=== PATIENT | male | born 1970 | race Caucasian/White ===

== ENCOUNTER 2016-08-25 08:22 | Emergency (ER) | payer BC ==
[2016-08-25] MEDS ORDERED: KETOROLAC 60 MG/2 ML VIAL IM STA (08:53)
[2016-08-25] MEDS ORDERED: DIAZEPAM 5 MG TAB PO STA (08:53)
--- NOTE | 2016-08-25 08:55 | ED ---
General Adult HPI - General Chief complaint: Back Pain/Injury Stated complaint: Lower Back Pain Time Seen by Provider: 08/25/16 08:42 Source: patient, RN notes reviewed Mode of arrival: ambulatory Limitations: no limitations - History of Present Illness Initial comments: Patient 45-year-old male with no significant past medical history, who presents emergency room today with chief complaint of increased lower back pain. He doesn't that he was at work yesterday and the pain came on slowly started to feel some discomfort to the right side of his lower back that was worse with any movements. 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 He states he went to see medical department. States he tried some ice. Was given Tylenol. Went back to work. States is his continue to work pain was increasing. States worse with any movements today. Had a difficult time getting out of bed. Does admit that pain does radiate at times down onto the right leg. Denies any bowel or bladder incontinence or retention. Denies any saddle anesthesia. Patient states is not taking anything this morning for the pain. He does admit that he is able to find comfortable position sitting or laying down at times. It is worse with movements of bending, turning, twisting. Patient denies any recent fever, chills, shortness of breath, chest pain, abdominal pain, nausea or vomiting, numbness or tingling, dysuria or hematuria, constipation or diarrhea, headaches or visual changes, or any other complaints. - Related Data Home Medications Medication Instructions Recorded Confirmed Acetaminophen [Tylenol] 500 mg PO Q4-6H PRN 08/25/16 08/25/16 Ibuprofen [Motrin] 800 mg PO DAILY PRN 08/25/16 08/25/16 Previous Rx's Medication Instructions Recorded Cyclobenzaprine [Flexeril] 10 mg PO TID #20 tab 08/25/16 Ibuprofen [Motrin] 800 mg PO Q6HR PRN #30 tab 08/25/16 Allergies Allergy/AdvReac Type Severity Reaction Status Date / Time No Known Allergies Allergy Verified 08/25/16 09:25 Review of Systems ROS Statement: Those systems with pertinent positive or pertinent negative responses have been documented in the HPI. ROS Other: All systems not noted in ROS Statement are negative. Past Medical History Additional Past Medical History / Comment(s): disc herniation History of Any Multi-Drug Resistant Organisms: None Reported Past Surgical History: No Surgical Hx Reported Past Psychological History: No Psychological Hx Reported Smoking Status: Never smoker Past Alcohol Use History: Occasional Past Drug Use History: None Reported General Exam - General Exam Comments Initial Comments: General: The patient is awake and alert, in no distress, and does not appear acutely ill. Eye: Pupils are equal, round and reactive to light, extra-ocular movements are intact. No nystagmus. There is normal conjunctiva bilaterally. No signs of icterus. Ears, nose, mouth and throat: There are moist mucous membranes and no oral lesions. Neck: The neck is supple, there is no tenderness or JVD. Cardiovascular: There is a regular rate and rhythm. No murmur, rub or gallop is appreciated. Respiratory: Lungs are clear to auscultation, respirations are non-labored, breath sounds are equal. No wheezes, stridor, rales, or rhonchi. Musculoskeletal: Normal appearance of thoracic, spine. No step-offs forms appreciated. Patient does have tenderness paravertebrally at L2-L3 of the lumbar spine. No tenderness in midline. Strength 5/5. Sensation intact. Pulses equal bilaterally 2+. Neurological: A&O x 3. CN II-XII intact, There are no obvious motor or sensory deficits. Coordination appears grossly intact. Speech is normal. Skin: Skin is warm and dry and no rashes or lesions are noted. Psychiatric: Cooperative, appropriate mood & affect, normal judgment. Limitations: no limitations Course Vital Signs 08/25/16 08:23 Temperature 97.4 F L Pulse Rate 65 Respiratory 18 Rate Blood Pressure 159/91 O2 Sat by Pulse 97 Oximetry Medical Decision Making - Medical Decision Making Patient reexamined at this time shows no signs of distress. Patient resting comfortably in the stretcher. Does admit to some improvement after Toradol and Valium here in the emergency room. Patient's x-ray reviewed and are unremarkable. Sinuses symptoms of concern and to return to the emergency room were discussed with the patient at length. Patient advised to follow-up family doctor over the next 2 days symptoms are unimproved. Advised that muscle relaxers make him drowsy and not to work or drive. Patient states her stated and is in agreement with this plan. Disposition Clinical Impression: Acute low back pain Disposition: HOME SELF-CARE Condition: Good Instructions: Acute Low Back Pain (ED) Additional Instructions: Please use medication as discussed. Please follow-up with family doctor in the next 2 days of symptoms have not improved. Please return to emergency room if the symptoms increase or worsen or for any other concerns. Prescriptions: Cyclobenzaprine [Flexeril] 10 mg PO TID #20 tab Ibuprofen [Motrin] 800 mg PO Q6HR PRN #30 tab PRN Reason: Pain Referrals: Blaine Alcala MD [Primary Care Provider] - 1-2 days Time of Disposition: 10:07
--- NOTE | 2016-08-25 09:46 | XR ---
EXAMINATION TYPE: XR lumbar spine 2 or 3V DATE OF EXAM: 08/25/2016 9:37 AM CLINICAL HISTORY: pain TECHNIQUE: Three views of the lumbar spine are submitted. COMPARISON: None. FINDINGS: There are 5 lumbar type vertebral bodies identified. The lumbar spine shows satisfactory alignment w ithout evidence of acute fracture or dislocation. Vertebral body heights are within normal limits. Disc spaces are within normal limits. The overlying soft tissue appears unremarkable. IMPRESSION: No acute fracture or dislocation is seen in the lumbar spine. ICD 10 NO FRACTURE, INITIAL EVALUATION
[2016-08-25 10:37] VITALS: BP 131/74; PULSE 74; RESP 16; TEMP 97.2
== END 2016-08-25 10:37 | disposition home or self-care (01) ==
LOC: EC 08:22
DX: M54.5 Low back pain (principal); Y92.69 Other specified industrial and construction area as the place of occurrence of the external cause; Y99.0 Civilian activity done for income or pay
CPT/HCPCS: 72100; 99283; 96372; J1885

== ENCOUNTER 2020-01-12 08:33 | Inpatient (IN) | payer BC ==
[2020-01-12] MEDS ORDERED: SODIUM CHLORIDE 0.9% 500 ML 500 ML IV STA (08:34)
[2020-01-12] MEDS ORDERED: ACETAMINOPHEN TAB 500 MG TAB PO STA (08:41)
[2020-01-12] MEDS ORDERED: IBUPROFEN 600 MG TAB PO STA (08:41)
[2020-01-12] MEDS: HYDROmorphone 0.5 MG/0.5 ML SYRINGE IVP STA ×2 (08:46→15:50)
--- NOTE | 2020-01-12 09:07 | ED ---
General Adult HPI - General Chief complaint: Abdominal Pain Stated complaint: abd pain Time Seen by Provider: 01/12/20 08:35 Source: patient, EMS, RN notes reviewed, old records reviewed Mode of arrival: EMS Limitations: no limitations - History of Present Illness Initial comments: This is a 49-year-old male who presents to the emergency department complaining of right lower quadrant abdominal pain for the last 3 days. Patient states the pain is getting progressively worse. Patient states he is mildly nauseated but has not vomited or any diarrhea. Patient denies any fever chills. Patient denies any chest pain difficulty breathing shortness of breath. Patient denies any dysuria hematuria urinary frequency. Patient denies any back pain. - Related Data Home Medications Medication Instructions Recorded Confirmed Atorvastatin [Lipitor] 10 mg PO DAILY 01/12/20 01/12/20 DULoxetine HCL [Cymbalta] 30 mg PO DAILY 01/12/20 01/12/20 Ibuprofen [Motrin] 800 mg PO BID PRN 01/12/20 01/12/20 Phentermine HCl [Adipex-P] 37.5 mg PO DAILY 01/12/20 01/12/20 Zolpidem [Ambien] 10 mg PO HS PRN 01/12/20 01/12/20 Allergies Allergy/AdvReac Type Severity Reaction Status Date / Time No Known Allergies Allergy Verified 01/12/20 09:28 Review of Systems ROS Statement: Those systems with pertinent positive or pertinent negative responses have been documented in the HPI. ROS Other: All systems not noted in ROS Statement are negative. Past Medical History Past Medical History: Hyperlipidemia Additional Past Medical History / Comment(s): disc herniation History of Any Multi-Drug Resistant Organisms: None Reported Past Surgical History: No Surgical Hx Reported Past Psychological History: No Psychological Hx Reported Smoking Status: Former smoker Past Alcohol Use History: Occasional Past Drug Use History: None Reported General Exam - General Exam Comments Initial Comments: GENERAL: Patient is well-developed and well-nourished. Patient is nontoxic and well- hydrated and is in moderate distress. ENT: Neck is soft and supple. No significant lymphadenopathy is noted. Oropharynx is clear. Moist mucous membranes. Neck has full range of motion without eliciting any pain. EYES: The sclera were anicteric and conjunctiva were pink and moist. Extraocular movements were intact and pupils were equal round and reactive to light. Eyelids were unremarkable. PULMONARY: Unlabored respirations. Good breath sounds bilaterally. No audible rales rhonchi or wheezing was noted. CARDIOVASCULAR: There is a regular rate and rhythm without any murmurs gallops or rubs. ABDOMEN: Right lower quadrant abdominal pain with rebound. Patient has no inguinal hernia noted SKIN: Normal skin inspection NEUROLOGIC: Patient is alert and oriented 3. Cranial nerves II through XII are grossly intact. Motor and sensory are also intact. Normal speech, volume and content. Symmetrical smile. MUSCULOSKELETAL: Normal extremities with adequate strength and full range of motion. LYMPHATICS: No significant lymphadenopathy is noted PSYCHIATRIC: Normal psychiatric evaluation. Limitations: no limitations Course Vital Signs 01/12/20 08:37 Temperature 102.8 F H Pulse Rate 106 H Respiratory 18 Rate Blood Pressure 126/76 O2 Sat by Pulse 97 Oximetry Medical Decision Making - Medical Decision Making CT of the abdomen shows acute appendicitis. I spoke with Dr. Farr he agreed to admit the patient and I wrote admit orders. Patient started on Zosyn in the emergency department. - Lab Data Result diagrams: 01/12/20 09:30 01/12/20 09:30 Lab Results 01/12/20 01/12/20 Range/Units 09:30 09:30 WBC 14.3 H (3.8-10.6) k/uL RBC 4.76 (4.30-5.90) m/uL Hgb 13.9 (13.0-17.5) gm/dL Hct 41.3 (39.0-53.0) % MCV 86.7 (80.0-100.0) fL MCH 29.1 (25.0-35.0) pg MCHC 33.6 (31.0-37.0) g/dL RDW 12.9 (11.5-15.5) % Plt Count 268 (150-450) k/uL Neutrophils % 87 % Lymphocytes % 6 % Monocytes % 5 % Eosinophils % 1 % Basophils % 0 % Neutrophils # 12.4 H (1.3-7.7) k/uL Lymphocytes # 0.9 L (1.0-4.8) k/uL Monocytes # 0.8 (0-1.0) k/uL Eosinophils # 0.2 (0-0.7) k/uL Basophils # 0.0 (0-0.2) k/uL Sodium 136 L (137-145) mmol/L Potassium 3.9 (3.5-5.1) mmol/L Chloride 106 (98-107) mmol/L Carbon Dioxide 22 (22-30) mmol/L Anion Gap 8 mmol/L BUN 15 (9-20) mg/dL Creatinine 1.20 (0.66-1.25) mg/dL Est GFR (CKD-EPI)AfAm 83 (>60 ml/min/1.73 sqM) Est GFR (CKD-EPI)NonAf 72 (>60 ml/min/1.73 sqM) Glucose 110 H (74-99) mg/dL Calcium 9.0 (8.4-10.2) mg/dL Total Bilirubin 0.8 (0.2-1.3) mg/dL AST 21 (17-59) U/L ALT 22 (4-49) U/L Alkaline Phosphatase 66 (38-126) U/L Total Protein 6.5 (6.3-8.2) g/dL Albumin 4.0 (3.5-5.0) g/dL Amylase 43 (30-110) U/L Lipase 46 (23-300) U/L Disposition Clinical Impression: Appendicitis Disposition: ADMITTED IP TO THIS HOSP Referrals: Blaine Alcala MD [Primary Care Provider] - 1-2 days Time of Disposition: 10:06
[2020-01-12 09:46] LABS: Basophils % (A) 0 %; Eosinophils # (A) 0.2 k/uL (0-0.7); Eosinophils % (A) 1 %; HCT 41.3 % (39.0-53.0); HGB 13.9 gm/dL (13.0-17.5); Lymphocytes # (A) 0.9 k/uL (1.0-4.8); Lymphocytes % (A) 6 %; MCH 29.1 pg (25.0-35.0); MCHC 33.6 g/dL (31.0-37.0); MCV 86.7 fL (80.0-100.0); Monocytes # (A) 0.8 k/uL (0-1.0); Monocytes % (A) 5 %; Neutrophils # (A) 12.4 k/uL (1.3-7.7); Neutrophils % (A) 87 %; Platelet Count 268 k/uL (150-450); RBC 4.76 m/uL (4.30-5.90); RDW 12.9 % (11.5-15.5); WBC 14.3 k/uL (3.8-10.6)
[2020-01-12 09:54] LABS: Potassium 3.9 mmol/L (3.5-5.1); Total Bilirubin 0.8 mg/dL (0.2-1.3); Total Protein 6.5 g/dL (6.3-8.2)
--- NOTE | 2020-01-12 09:57 | CT ---
EXAMINATION TYPE: CT abdomen pelvis w con DATE OF EXAM: 01/12/2020 COMPARISON: None. HISTORY: RLQ pain, nausea CT DLP: 2020.9 mGycm, Automated Exposure Control for Dose Reduction was Utilized. CONTRAST: CT scan of the abdomen and pelvis is performed without oral but with IV Contrast, patient injected wi th 100 mL of Isovue 300. FINDINGS: LUNG BASES: Dependent Atelectasis in both bases. LIVER/GB: No significant abnormality is appreciated. PANCREAS: No significant abnormality is seen. SPLEEN: No significant abnormality is seen. ADRENALS: No significant abnormality is seen. KIDNEYS: No significant abnormality is seen. BOWEL: Mild to moderate wall thickening involving the terminal ileum related to appendix findings. Th ere is hyperdense material suspected appendicolith towards the base of appendix. There is moderate di latation of 10 mm near the tip of appendix. There is moderate 2 severe ill-defined fluid and fat stra nding surrounding abnormal appendix. No free air. No well-formed fluid collection is seen. No suspici ous small large bowel dilatation. PROSTATE/SEMINAL VESICLES: Scattered bilateral pelvic phleboliths. Normal size prostate LYMPH NODES: No greater than 1cm abdominal or pelvic lymph nodes are appreciated. OSSEOUS STRUCTURES: No significant abnormality is seen. OTHER: No significant abnormality is seen. IMPRESSION: CT findings consistent with uncomplicated acute appendicitis as detailed above. Moderate to severe surrounding inflammatory change noted. Critical results communicated to ordering ER physician via telephone at time of dictation. A Document Only message has been documented for Scottie Cherry in the [employer] Critical Result system on 01/12/2020 9:54 AM, Message ID [id number].
[2020-01-12] MEDS ORDERED: PIPERACILLIN-TAZOBACTAM 3.375 GM in SODIUM CHLORIDE 0.9% 100 ML IVPB STA (10:05)
[2020-01-12] MEDS ORDERED: SODIUM CHLORIDE 0.9% 1,000 ML IV ONE (10:08)
[2020-01-12] MEDS ORDERED: HYDROmorphone 0.5 MG/0.5 ML SYRINGE IVP STA (10:15)
[2020-01-12 10:56] LABS: Appearance,Urine Clear (Clear); Bilirubin,Urine Negative (Negative); Blood,Urine Negative (Negative); Color,Urine Yellow; Glucose,Urine (UA) Negative (Negative); Ketones,Urine 2+ (Negative); Leukocyte Esterase,Urine Negative (Negative); Nitrite,Urine Negative (Negative); Protein,Urine Trace (Negative); Urobilinogen,Urine <2.0 mg/dL (<2.0)
[2020-01-12 11:46] LABS: Specific Gravity,Urine 1.047 (1.001-1.035)
--- NOTE | 2020-01-12 12:37 | P.GSHP ---
History of Present Illness H&P Date: 01/12/20 CHIEF COMPLAINT: Right lower quadrant abdominal pain HISTORY OF PRESENT ILLNESS: This is a 49-year-old male with a known history of hyperlipidemia. He presents to the emergency room with right lower quadrant abdominal pain for 3 days. Reports the pain is getting progressively worse. He has some nausea but no vomiting. Denies any fever or chills. Computed tomography scan findings did show evidence of an acute appendicitis. PAST MEDICAL HISTORY: See list. PAST SURGICAL HISTORY: See list. MEDICATIONS: See list. ALLERGIES: See list. SOCIAL HISTORY: No illicit drug use. REVIEW OF SYSTEMS: CONSTITUTIONAL: Denies fever or chills. HEENT: Denies blurred vision, vision changes, or eye pain. Denies hemoptysis CARDIOVASCULAR: Denies chest pain or pressure. RESPIRATORY: No shortness of breath. GASTROINTESTINAL: See HPI for pertinent findings HEMATOLOGIC: Denies bleeding disorders. GENITOURINARY: Denies any blood in urine or increased urinary frequency. SKIN: Denies pruitis. Denies rash. PHYSICAL EXAM: VITAL SIGNS: Reviewed GENERAL: Well-developed in no acute distress. HEENT: No sclera icterus. Extraocular movements grossly intact. Moist buccal mucosa. Head is atraumatic, normocephalic. No nasal drainage. ABDOMEN: Soft. Nondistended. Tenderness with palpation to right lower quadrant. NEUROLOGIC: Alert and oriented. Cranial nerves II through XII grossly intact. LABORATORY DATA: WBC 14.3 hemoglobin 13.9 IMAGING: CT abdomen and pelvis finding since his stent with uncomplicated acute appendicitis. Moderate to severe surrounding inflammatory change ASSESSMENT: 1. Acute appendicitis PLAN: -Patient is scheduled for laparoscopic appendectomy today with Dr. Farr Physician Supervisor [employer] [facility] note has been reviewed by physician. Signing provider agrees with the documented findings, assessment, and plan of care. Past Medical History Past Medical History: Hyperlipidemia Additional Past Medical History / Comment(s): disc herniation History of Any Multi-Drug Resistant Organisms: None Reported Past Surgical History: No Surgical Hx Reported Past Psychological History: No Psychological Hx Reported Smoking Status: Former smoker Past Alcohol Use History: Occasional Past Drug Use History: None Reported Medications and Allergies Home Medications Medication Instructions Recorded Confirmed Type Atorvastatin [Lipitor] 10 mg PO DAILY 01/12/20 01/12/20 History DULoxetine HCL [Cymbalta] 30 mg PO DAILY 01/12/20 01/12/20 History Ibuprofen [Motrin] 800 mg PO BID PRN 01/12/20 01/12/20 History Phentermine HCl [Adipex-P] 37.5 mg PO DAILY 01/12/20 01/12/20 History Zolpidem [Ambien] 10 mg PO HS PRN 01/12/20 01/12/20 History Allergies Allergy/AdvReac Type Severity Reaction Status Date / Time No Known Allergies Allergy Verified 01/12/20 09:28 Surgical - Exam Vital Signs Temp Pulse Resp BP Pulse Ox 102.8 F H 106 H 18 126/76 97 01/12/20 08:37 01/12/20 08:37 01/12/20 08:37 01/12/20 08:37 01/12/20 08:37 Results - Labs 01/12/20 09:30 01/12/20 09:30 Abnormal Lab Results - Last 24 Hours (Table) 01/12/20 01/12/20 01/12/20 Range/Units 09:30 09:30 09:30 WBC 14.3 H (3.8-10.6) k/uL Neutrophils # 12.4 H (1.3-7.7) k/uL Lymphocytes # 0.9 L (1.0-4.8) k/uL Sodium 136 L (137-145) mmol/L Glucose 110 H (74-99) mg/dL Ur Specific Gervais 1.047 H (1.001-1.035) Urine Protein Trace H (Negative) Urine Ketones 2+ H (Negative) Diabetes panel 01/12/20 Range/Units 09:30 Sodium 136 L (137-145) mmol/L Potassium 3.9 (3.5-5.1) mmol/L Chloride 106 (98-107) mmol/L Carbon Dioxide 22 (22-30) mmol/L BUN 15 (9-20) mg/dL Creatinine 1.20 (0.66-1.25) mg/dL Glucose 110 H (74-99) mg/dL Calcium 9.0 (8.4-10.2) mg/dL AST 21 (17-59) U/L ALT 22 (4-49) U/L Alkaline Phosphatase 66 (38-126) U/L Total Protein 6.5 (6.3-8.2) g/dL Albumin 4.0 (3.5-5.0) g/dL Calcium panel 01/12/20 Range/Units 09:30 Calcium 9.0 (8.4-10.2) mg/dL Albumin 4.0 (3.5-5.0) g/dL Pituitary panel 01/12/20 Range/Units 09:30 Sodium 136 L (137-145) mmol/L Potassium 3.9 (3.5-5.1) mmol/L Chloride 106 (98-107) mmol/L Carbon Dioxide 22 (22-30) mmol/L BUN 15 (9-20) mg/dL Creatinine 1.20 (0.66-1.25) mg/dL Glucose 110 H (74-99) mg/dL Calcium 9.0 (8.4-10.2) mg/dL Adrenal panel 01/12/20 Range/Units 09:30 Sodium 136 L (137-145) mmol/L Potassium 3.9 (3.5-5.1) mmol/L Chloride 106 (98-107) mmol/L Carbon Dioxide 22 (22-30) mmol/L BUN 15 (9-20) mg/dL Creatinine 1.20 (0.66-1.25) mg/dL Glucose 110 H (74-99) mg/dL Calcium 9.0 (8.4-10.2) mg/dL Total Bilirubin 0.8 (0.2-1.3) mg/dL AST 21 (17-59) U/L ALT 22 (4-49) U/L Alkaline Phosphatase 66 (38-126) U/L Total Protein 6.5 (6.3-8.2) g/dL Albumin 4.0 (3.5-5.0) g/dL
[2020-01-12] MEDS ORDERED: IV FLUID CONTINUATION 1,000 ML IV ONE (12:59)
[2020-01-12] MEDS ORDERED: ONDANSETRON 4 MG/2 ML VIAL ONE ×2 (13:13→13:49)
[2020-01-12] MEDS ORDERED: HEPARIN SODIUM,PORCINE 5,000 UNIT/ML 1 ML VIAL ONE (13:13)
[2020-01-12] MEDS ORDERED: HEPARIN SODIUM,PORCINE 5,000 UNIT/ML 1 ML VIAL SQ ONE (13:40)
[2020-01-12] MEDS ORDERED: MIDAZOLAM 2 MG/2 ML VIAL ONE (13:49)
[2020-01-12] MEDS ORDERED: ROCURONIUM 10 MG/ML (10 ML VIAL) IV ONE (13:49)
[2020-01-12] MEDS ORDERED: PHENYLEPHRINE-0.9% NACL SYG 1 MG/10 ML SYRINGE ONE (13:49)
[2020-01-12] MEDS ORDERED: fentaNYL (PF) 50 MCG/ML 2 ML AMP ONE (13:49)
[2020-01-12] MEDS ORDERED: NEOSTIGMINE 1 MG/ML 10 ML VIAL ONE (13:49)
[2020-01-12] MEDS ORDERED: SUCCINYLCHOLINE CHLORIDE VIAL 200 MG/10 ML VIAL IV ONE (13:49)
[2020-01-12] MEDS ORDERED: PROPOFOL 10 MG/ML 20 ML VIAL IV ONE (13:49)
[2020-01-12] MEDS ORDERED: GLYCOPYRROLATE 0.2 MG/ML 2 ML VIAL ONE (13:49)
[2020-01-12] MEDS ORDERED: LIDOCAINE 1% INJ 10MG/ML (20 ML MDV) ONE (13:49)
[2020-01-12] MEDS ORDERED: LACTATED RINGERS 1,000 ML IV ONE (14:27)
[2020-01-12] MEDS ORDERED: LIDOCAINE 1%-EPI 1:100,000 20 ML VIAL SQ ONE (14:31)
[2020-01-12] MEDS ORDERED: ACETAMINOPHEN TAB 325 MG TAB PO PRN (14:41)
[2020-01-12] MEDS ORDERED: NALOXONE 0.4 MG/ML 1 ML VIAL IV PRN (14:41)
--- NOTE | 2020-01-12 14:41 | P.OP ---
Date of Procedure: 01/12/20 Preoperative Diagnosis: Acute appendicitis Postoperative Diagnosis: Acute appendicitis with perforation Procedure(s) Performed: Open appendectomy Anesthesia: LEANNA Surgeon: Dima Farr Estimated Blood Loss (ml): 10 Pathology: other (Appendix) Condition: stable Disposition: PACU Description of Procedure: LThe patient's placed on the operating table in the supine position. The patient received general anesthesia. The abdomen was prepped and draped in the usual sterile fashion. The skin was anesthetized 1% local Xylocaine at the trocar sites. Using an 11 blade the skin was incised at the umbilicus. The umbilicus was grasped with a White Stone clamp and then a Veress needle was placed into the peritoneal cavity. Position of the Veress needle was confirmed with positive drop test. After adequate insufflation a 5 mm trocar was placed into the peritoneal cavity. The abdomen was further insufflated. And then the laparoscope was placed in the peritoneal cavity. Next a 5 mm trocar was placed in the midline suprapubic position. And then a 10 mm trocar was placed in the midline epigastric position. The patient was rotated with the right side up and in Trendelenburg. The appendix was visualized. The appendix was grossly perforated. There was evidence of purulent fluid throughout the peritoneal cavity. This point the procedure was converted to an open procedure. The trochars withdrawn. The skin was incised in the midline periumbilical area. And then using cautery the subcutaneous tissues were divided the fascia was divided midline. The wound WITH wound. The cecum was immobilized and brought towards the middle incision. The mesoappendix was divided with the Harmonic scissors. And then the appendix was ligated with a Endoloop. The Harmonic scissors were used to divide the appendix. The specimens of pathology. The abdomen was irrigated 3 L of normal saline. A AGNIESZKA drains placed through separate stab incision and brought out through the right abdominal wall. The fascia is closed loop #1 PDS suture. Skin was closed gilberto. Patient top she will was sent to recovery in stable condition.
[2020-01-12] MEDS: KETOROLAC 15 MG/ML 1 ML VIAL IVP SCH ×2 (15:50→23:21)
[2020-01-12] MEDS ORDERED: METOCLOPRAMIDE 5 MG/ML 2 ML VIAL IVP ONE (15:53)
[2020-01-12] MEDS: PIPERACILLIN-TAZOBACTAM 3.375 GM in SODIUM CHLORIDE 0.9% 100 ML IVPB SCH (18:02)
[2020-01-12] MEDS: D5-0.45% NACL WITH KCL 20MEQ/L 1,000 ML IV SCH (18:02)
[2020-01-12] MEDS: HYDROcodone/APAP 5-325MG 1 EACH TAB PO PRN (18:06)
--- NOTE | 2020-01-13 00:17 | P.CONS ---
History of Present Illness - Reason for Consult Consult date: 01/12/20 Perforated appendicitis Requesting physician: Dima Farr - Chief Complaint Abdominal pain x 2 days - History of Present Illness Patient is 49-year-old male presenting to the ER at [facility] with abdominal pain this started about 2 days prior to presentation to the hospital patient mentioned the pain and she started on the umbilical area an d subsequently moved to his right lower quadrant patient described the pain to be sharp in nature interest in normal sterile Bactrim by the time he presented to the hospital with associated nausea but no vomiting and no diarrhea he also started having a fever with chills on arrival to the ER the patient did have a fever of 102F patient was tachycardic and did have elevated white count of 14,[address] of abdominal pelvis with evidence of a complicated acute appendicitis with some extremity changes around it patient was taken to the OR he was noticed to have perforated appendicitis patient is status post appendectomy patient has been started on Zosyn and infectious disease was c onsulted for further management of antibiotic therapy Review of Systems Positive point has been mentioned in the HPI rest of the systems are negative Past Medical History Past Medical History: Hyperlipidemia Additional Past Medical History / Comment(s): disc herniation History of Any Multi-Drug Resistant Organisms: None Reported Past Surgical History: No Surgical Hx Reported Past Psychological History: No Psychological Hx Reported Smoking Status: Former smoker Past Alcohol Use History: Occasional Past Drug Use History: None Reported Medications and Allergies Home Medications Medication Instructions Recorded Confirmed Type Atorvastatin [Lipitor] 10 mg PO DAILY 01/12/20 01/12/20 History DULoxetine HCL [Cymbalta] 30 mg PO DAILY 01/12/20 01/12/20 History Ibuprofen [Motrin] 800 mg PO BID PRN 01/12/20 01/12/20 History Phentermine HCl [Adipex-P] 37.5 mg PO DAILY 01/12/20 01/12/20 History Zolpidem [Ambien] 10 mg PO HS PRN 01/12/20 01/12/20 History Allergies Allergy/AdvReac Type Severity Reaction Status Date / Time No Known Allergies Allergy Verified 01/12/20 09:28 Physical Exam Vitals: Vital Signs Temp Pulse Pulse Resp BP BP Pulse Ox 01/12/20 19:30 98.6 F 94 16 110/76 92 L 01/12/20 17:00 103 H 16 105/60 100 01/12/20 16:30 92 16 104/64 99 01/12/20 16:15 91 16 108/64 99 01/12/20 16:00 96 16 106/63 98 01/12/20 15:45 95 16 107/56 99 01/12/20 15:30 87 16 105/67 100 01/12/20 15:15 87 16 103/61 100 01/12/20 15:00 98.0 F 100 16 105/74 94 L 01/12/20 14:46 98.6 F 56 L 16 131/47 100 01/12/20 13:06 98.5 F 101 H 16 96/60 96 01/12/20 10:30 98.8 F 105 H 15 113/68 99 01/12/20 08:37 102.8 F H 106 H 18 126/76 97 Intake and Output 01/12/20 01/12/20 01/12/20 06:59 14:59 22:59 Intake Total 2300 1850 Output Total 10 Balance 2290 1850 Intake: IV 2300 1100 Oral 750 Output: Estimated Blood Loss 10 Other: Weight 117.934 kg 117.934 kg GENERAL DESCRIPTION: Middle-aged male lying in bed, no distress. No tachypnea or accessory muscle of respiration use. HEENT: Shows Pallor , no scleral icterus. Oral mucous membrane is dry. No pharyngeal erythema or thrush NECK: Trachea central, no thyromegaly. LUNGS: Unlabored breathing. Clear to auscultation anteriorly. No wheeze or crackle. HEART: S1, S2, regular rate and rhythm. No loud murmur ABDOMEN: Soft, right lower quadrant tenderness , guarding or rigidity, no organomegaly EXTREMITIES: No edema of feet. SKIN: No rash, no masses palpable. NEUROLOGICAL: The patient is awake, alert, oriented x3, mood and affect normal. Results CBC & Chem 7: 01/12/20 09:30 01/12/20 09:30 Labs: Abnormal Lab Results - Last 24 Hours (Table) 01/12/20 01/12/20 01/12/20 Range/Units 09:30 09:30 09:30 WBC 14.3 H (3.8-10.6) k/uL Neutrophils # 12.4 H (1.3-7.7) k/uL Lymphocytes # 0.9 L (1.0-4.8) k/uL Sodium 136 L (137-145) mmol/L Glucose 110 H (74-99) mg/dL Ur Specific [place] 1.047 H (1.001-1.035) Urine Protein Trace H (Negative) Urine Ketones 2+ H (Negative) Assessment and Plan Assessment: 1- patient presented to hospital with sepsis in this patient who did have a fever of 102F tachycardia and elevated white count source is acute or for early appendicitis and will need to cover for the enteric gram-negative both anaerobes and aerobes to be likely responsible for this sepsis and infection (1) Perforated appendicitis Current Visit: Yes Status: Acute Code(s): K35.32 - ACUTE APPENDICITIS WITH PERF AND LOC PERITONITIS, W/O ABSCS SNOMED Code(s): 87105742 (2) Sepsis Current Visit: Yes Status: Acute Code(s): A41.9 - SEPSIS, UNSPECIFIED ORGANISM SNOMED Code(s): 90955366 Plan: 1- Zosyn 3.375 mg every 8 hours 2-gentle IV fluid We will follow on clinical condition and cultures to further adjust medication if needed Thank you for this consultation will follow this patient with you Time with Patient: Greater than 30
[2020-01-13] MEDS: PIPERACILLIN-TAZOBACTAM 3.375 GM in SODIUM CHLORIDE 0.9% 100 ML IVPB SCH ×4 (01:01→23:44)
[2020-01-13] MEDS: D5-0.45% NACL WITH KCL 20MEQ/L 1,000 ML IV SCH ×3 (02:19→12:01)
[2020-01-13] MEDS: KETOROLAC 15 MG/ML 1 ML VIAL IVP SCH ×4 (05:35→23:44)
[2020-01-13 06:40] LABS: Basophils % (A) 0 %; Eosinophils # (A) 0.1 k/uL (0-0.7); Eosinophils % (A) 1 %; HCT 36.5 % (39.0-53.0); HGB 12.1 gm/dL (13.0-17.5); Lymphocytes # (A) 1.3 k/uL (1.0-4.8); Lymphocytes % (A) 11 %; MCH 29.4 pg (25.0-35.0); MCHC 33.2 g/dL (31.0-37.0); MCV 88.7 fL (80.0-100.0); Mean Platelet Volume 8.2; Monocytes # (A) 0.6 k/uL (0-1.0); Monocytes % (A) 5 %; Neutrophils # (A) 10.2 k/uL (1.3-7.7); Neutrophils % (A) 83 %; Platelet Count 225 k/uL (150-450); RBC 4.12 m/uL (4.30-5.90); RDW 13.1 % (11.5-15.5); WBC 12.4 k/uL (3.8-10.6)
[2020-01-13] MEDS: ENOXAPARIN 40 MG/0.4 ML SYRINGE SQ SCH (08:42)
[2020-01-13] MEDS: BENZOCAINE/MENTHOL LOZENG 1 EACH LOZENGE MUCOUS MEM PRN ×2 (08:59→16:48)
[2020-01-13] MEDS: HYDROcodone/APAP 5-325MG 1 EACH TAB PO PRN (08:59)
--- NOTE | 2020-01-13 09:33 | P.PN ---
Progress Note - Text Progress Note Date: 01/13/20 The patient is postoperative day 1 from open perforated appendectomy. Patient feels well. On exam vital signs are stable. His abdomen soft. Incision is clean dry tach. Status post open appendectomy for perforated appendicitis. Patient will continue C IV antibiotics. He'll remain on clear liquids.
[2020-01-13 11:02] LABS: Albumin 3.5 g/dL (3.80-4.90); Albumin/Globulin Ratio 2.06 (1.60-3.17); Anion Gap 7.3 mmol/L (4.00-12.00); BUN/Creat Ratio 13.33 Ratio (12.00-20.00); Calcium 8.1 mg/dL (8.7-10.3); Carbon Dioxide 26.7 mmol/L (21.6-31.8); Globulin 1.7 g/dL (1.6-3.3); Non-African American GFR(CKD) 71.6 (60.0-200.0); Potassium 3.9 mmol/L (3.5-5.5); Total Bilirubin 1.2 mg/dL (0.2-1.2); Total Protein 5.2 g/dL (6.2-8.2)
--- NOTE | 2020-01-13 16:50 | P.CONS ---
History of Present Illness - Reason for Consult Consult date: 01/13/20 Medical management Requesting physician: Dima Farr - Chief Complaint Abdominal pain - History of Present Illness Consultation: This is a pleasant 49-year-old patient of Dr. Alcala. Chronic stable medical conditions include insomnia, anxiety, hyperlipidemia. Patient is not taking Adipex-p. Patient had presented to the ER after was having increasing pain in the right lower quadrant coming on over course of 3 days. Progressively getting worse. Had some nausea. But no vomiting. No fever and chills. Computed tomography scan of the ER showed moderate to severe surrounding inflammatory changes of the appendix. Was taken to the operating room yesterday. Found to have perforated appendix with purulent fluid throughout the peritoneal cavity. Patient was converted to an open procedure. Has a drain in place. This morning the patient has some pain. on clear liquids. Review of systems: GEN.: Tired EYES: None HEENT: None NECK: None RESPIRATORY: None CARDIOVASCULAR: None GASTROINTESTINAL: As above GENITOURINARY: None MUSCULOSKELETAL: None LYMPHATICS: None HEMATOLOGICAL: None PSYCHIATRY: None NEUROLOGICAL: None Past medical history to include: Insomnia, anxiety, hyperlipidemia Social history: , does not smoke, alcohol occasionally. Works in a factory. Family history: Reviewed, noncontributory to presentation Physical examination: VITAL SIGNS: 102.8, 106, 18, 126/76, 97% on room air-upon presentation GENERAL: BMI 37.3, laying in bed, tired. EYES: Pupils equal. Conjunctiva normal. HEENT: External appearance of nose and ears normal, oral cavity grossly normal. NECK: JVD not raised; masses not palpable. HEART: First and second heart sounds are normal; no edema. LUNGS: Respiratory rate normal; clear to auscultation. ABDOMEN: Soft, tender, abdominal drain, dressing in place, liver spleen not palpable, no masses palpable. PSYCH: Alert and oriented x3; mood and affect normal. NEUROLOGICAL: Cranial nerves grossly intact; no facial asymmetry, power and sensation grossly intact. LYMPHATICS: No lymph nodes palpable in the axilla and neck INVESTIGATIONS, reviewed in the clinical context: White count 14.3. B12 0.4 increased neutrophils potassium 3.9 creatinine 1.2 Computed tomography scan of the abdomen-fluid and flat stranding around the normal appendix Assessment: -Acute appendicitis with perforation leading to open appendectomy, causing sepsis, POA -Secondary peritonitis from above -Obesity BMI 37.3 -Chronic insomnia idiopathic -Anxiety disorder not otherwise specified -Hyperlipidemia Plan: Patient is on IV Zosyn, Lovenox for DVT prophylaxis, IV fluids. On clear liquids. We'll resume patient's Cymbalta Lipitor. Care was discussed with the patient. Will add IV Flagyl Thank you Dr. Farr Past Medical History Past Medical History: Hyperlipidemia Additional Past Medical History / Comment(s): disc herniation History of Any Multi-Drug Resistant Organisms: None Reported Past Surgical History: No Surgical Hx Reported Past Psychological History: No Psychological Hx Reported Smoking Status: Former smoker Past Alcohol Use History: Occasional Past Drug Use History: None Reported Medications and Allergies Home Medications Medication Instructions Recorded Confirmed Type Atorvastatin [Lipitor] 10 mg PO DAILY 01/12/20 01/12/20 History DULoxetine HCL [Cymbalta] 30 mg PO DAILY 01/12/20 01/12/20 History Ibuprofen [Motrin] 800 mg PO BID PRN 01/12/20 01/12/20 History Phentermine HCl [Adipex-P] 37.5 mg PO DAILY 01/12/20 01/12/20 History Zolpidem [Ambien] 10 mg PO HS PRN 01/12/20 01/12/20 History Allergies Allergy/AdvReac Type Severity Reaction Status Date / Time No Known Allergies Allergy Verified 01/12/20 09:28 Physical Exam Vitals: Vital Signs Temp Pulse Pulse Resp BP BP Pulse Ox 01/13/20 07:00 99.4 F 104 H 16 108/73 91 L 01/13/20 01:15 98.5 F 83 16 95/60 93 L 01/12/20 19:30 98.6 F 94 16 110/76 92 L 01/12/20 17:00 103 H 16 105/60 100 01/12/20 16:30 92 16 104/64 99 01/12/20 16:15 91 16 108/64 99 01/12/20 16:00 96 16 106/63 98 01/12/20 15:45 95 16 107/56 99 01/12/20 15:30 87 16 105/67 100 01/12/20 15:15 87 16 103/61 100 01/12/20 15:00 98.0 F 100 16 105/74 94 L 01/12/20 14:46 98.6 F 56 L 16 131/47 100 01/12/20 13:06 98.5 F 101 H 16 96/60 96 01/12/20 10:30 98.8 F 105 H 15 113/68 99 Intake and Output 01/12/20 01/13/20 01/13/20 22:59 06:59 14:59 Intake Total 1850 100 750 Output Total 25 Balance 1850 100 725 Intake: IV 1100 Intake, IV Titration 350 Amount Piperacillin-Tazobactam 3 100 .375 gm In Sodium Chloride 0.9% 100 ml @ 25 mls/hr IVPB Q8HR BHAVIK Rx# :[id number] Sodium Chloride 0.9% 1, 250 000 ml @ 75 mls/hr IV . [id number] ONE Rx#:[id number] Oral 750 100 400 Output: Drainage 25 Right Abdomen 25 Other: Voiding Method Toilet # Voids 1 1 Weight 117.934 kg Results CBC & Chem 7: 01/13/20 06:12 01/13/20 06:12 Labs: Abnormal Lab Results - Last 24 Hours (Table) 01/12/20 01/13/20 Range/Units 09:30 06:12 WBC 12.4 H (3.8-10.6) k/uL RBC 4.12 L (4.30-5.90) m/uL Hgb 12.1 L (13.0-17.5) gm/dL Hct 36.5 L (39.0-53.0) % Neutrophils # 10.2 H (1.3-7.7) k/uL Ur Specific [place] 1.047 H (1.001-1.035) Urine Protein Trace H (Negative) Urine Ketones 2+ H (Negative)
[2020-01-13] MEDS ORDERED: metroNIDAZOLE-NS PMX 500 MG in SALINE 1 100ML.BAG IVPB SCH (17:00)
[2020-01-13] MEDS: metroNIDAZOLE-NS PMX 500 MG in SALINE 1 100ML.BAG IVPB SCH (21:58)
--- NOTE | 2020-01-13 23:19 | PN ---
PROGRESS NOTE DATE OF SERVICE: 01/13/2020 REASON FOR FOLLOWUP: Perforated appendicitis. INTERVAL HISTORY: Patient is currently afebrile. The patient is breathing comfortably. The patient's abdominal pain has slightly decreased in intensity. No chest pain, shortness of breath or cough. No nausea, vomiting and has been passing gas. PHYSICAL EXAMINATION: Blood pressure is a 111/68 with pulse 100, temperature 98.4. He is 95% on room air. General description: The patient is a middle-aged male lying in bed in no distress. Respiratory system: Unlabored breathing, clear to auscultation anteriorly. Heart S1, S2. Regular rate and rhythm. ABDOMEN: Soft, mildly tender. No guarding. No rigidity. LABS: Hemoglobin is 10.1, white count 12.4, creatinine 1.2. Blood culture has been negative. IMPRESSION/PLAN: Patient with perforated appendicitis, status post appendectomy. The patient is currently covered with Zosyn, to continue. We will monitor clinical course closely. Continue supportive care. MMODL / IJN: [id number] /
[2020-01-14] MEDS: D5-0.45% NACL WITH KCL 20MEQ/L 1,000 ML IV SCH ×3 (01:40→15:55)
[2020-01-14] MEDS: metroNIDAZOLE-NS PMX 500 MG in SALINE 1 100ML.BAG IVPB SCH ×4 (03:34→20:00)
[2020-01-14] MEDS: KETOROLAC 15 MG/ML 1 ML VIAL IVP SCH ×2 (05:34→11:36)
[2020-01-14 06:10] LABS: Basophils % (A) 0 %; Eosinophils # (A) 0.4 k/uL (0-0.7); Eosinophils % (A) 4 %; HCT 34.3 % (39.0-53.0); HGB 11.3 gm/dL (13.0-17.5); Lymphocytes # (A) 1.1 k/uL (1.0-4.8); Lymphocytes % (A) 11 %; MCHC 32.8 g/dL (31.0-37.0); MCV 88.4 fL (80.0-100.0); Mean Platelet Volume 9.1; Monocytes # (A) 0.4 k/uL (0-1.0); Monocytes % (A) 5 %; Neutrophils # (A) 7.3 k/uL (1.3-7.7); Neutrophils % (A) 79 %; Platelet Count 225 k/uL (150-450); RBC 3.88 m/uL (4.30-5.90); RDW 12.4 % (11.5-15.5); WBC 9.2 k/uL (3.8-10.6)
[2020-01-14] MEDS: ENOXAPARIN 40 MG/0.4 ML SYRINGE SQ SCH (08:57)
[2020-01-14] MEDS: PIPERACILLIN-TAZOBACTAM 3.375 GM in SODIUM CHLORIDE 0.9% 100 ML IVPB SCH ×2 (08:57→15:54)
--- NOTE | 2020-01-14 09:41 | P.PN ---
Progress Note - Text Progress Note Date: 01/14/20 The patient feels better. He has some incisional pain. On exam vital signs are stable. Abdomen soft. Incisions clean and intact. AGNIESZKA drain has serosanguineous drainage. Status post open appendectomy for perforated appendicitis. Patient received IV antibiotics. We discussed the discharged home and next 48 hours.
[2020-01-14 11:35] LABS: African American GFR (CKD) 103.4 (60.0-200.0); Albumin 3.3 g/dL (3.80-4.90); Albumin/Globulin Ratio 1.83 (1.60-3.17); Anion Gap 7.5 mmol/L (4.00-12.00); Calcium 8.1 mg/dL (8.7-10.3); Carbon Dioxide 25.5 mmol/L (21.6-31.8); Globulin 1.8 g/dL (1.6-3.3); Non-African American GFR(CKD) 89.2 (60.0-200.0); Potassium 3.8 mmol/L (3.5-5.5); Total Bilirubin 0.8 mg/dL (0.2-1.2); Total Protein 5.1 g/dL (6.2-8.2)
[2020-01-14] MEDS: HYDROcodone/APAP 5-325MG 1 EACH TAB PO PRN ×2 (12:41→20:00)
--- NOTE | 2020-01-14 16:15 | P.PN ---
Progress Note - Text Progress Note Date: 01/14/20 - Chief Complaint Abdominal pain - History of Present Illness History of presenting complaint: This is a pleasant 49-year-old patient of Dr. Alcala. Chronic stable medical conditions include insomnia, anxiety, hyperlipidemia. Patient is not taking Adipex-p. Patient had presented to the ER after was having increasing pain in the right lower quadrant coming on over course of 3 days. Progressively getting worse. Had some nausea. But no vomiting. No fever and chills. Computed tomography scan of the ER showed moderate to severe surrounding inflammatory changes of the appendix. Was taken to the operating room yesterday. Found to have perforated appendix with purulent fluid throughout the peritoneal cavity. Patient was converted to an open procedure. Has a drain in place. This morning the patient has some pain. on clear liquids. Admitted with acute appendicitis with perforation leading to open appendectomy- causing sepsis and secondary peritonitis. On IV Zosyn and IV Flagyl. Abdominal drain in place. Today-laying in bed. Some pain is present. On clear liquids. No nausea vomiting. Review of systems: Was done for constitutional, cardiovascular, GI, pulmonary. relevant finding as above Active Medications Acetaminophen (Acetaminophen Tab 325 Mg Tab) 650 mg PO Q6HR PRN PRN Reason: Mild Pain or Fever >= 100.5 Last Admin: 01/12/20 21:15 Dose: 650 mg Documented by: Hydrocodone Bitart/Acetaminophen (Hydrocodone/Apap 5-325mg 1 Each Tab) 2 each PO Q6HR PRN PRN Reason: Moderate to Severe Pain Last Admin: 01/14/20 12:41 Dose: 2 each Documented by: Benzocaine/Menthol (Benzocaine/Menthol Lozeng 1 Each Lozenge) 1 each MUCOUS MEM Q6HR PRN PRN Reason: Sore Throat Last Admin: 01/13/20 16:48 Dose: 1 each Documented by: Enoxaparin Sodium (Enoxaparin 40 Mg/0.4 Ml Syringe) 40 mg SQ DAILY [facility] Last Admin: 01/14/20 08:57 Dose: 40 mg Documented by: Potassium Chloride/Dextrose/Sod Cl (D5%-1/2ns-Kcl 20 Meq/L Iv Solution) 1,000 mls @ 125 mls/hr IV .Q8H BHAVIK Last Admin: 01/14/20 15:55 Dose: 125 mls/hr Documented by: Piperacillin Sod/Tazobactam (Sod 3.375 gm/ Sodium Chloride) 100 mls @ 25 mls/hr IVPB Q8HR [facility] Last Admin: 01/14/20 15:54 Dose: 25 mls/hr Documented by: Metronidazole 500 mg/ IV (Solution) 100 mls @ 100 mls/hr IVPB Q6H [facility] Last Admin: 01/14/20 15:24 Dose: 100 mls/hr Documented by: Naloxone HCl (Naloxone 0.4 Mg/Ml 1 Ml Vial) 0.2 mg IV Q2M PRN PRN Reason: Opioid Reversal Ondansetron HCl (Ondansetron 4 Mg/2 Ml Vial) 4 mg IVP Q6HR PRN PRN Reason: Nausea And Vomiting Physical examination: VITAL SIGNS: 97.7, 77, 19, 102/53, 94% room air GENERAL: laying in bed, tired. EYES: Pupils equal. Conjunctiva normal. HEENT: External appearance of nose and ears normal, oral cavity grossly normal. NECK: JVD not raised; masses not palpable. HEART: First and second heart sounds are normal; no edema. LUNGS: Respiratory rate normal; clear to auscultation. ABDOMEN: Soft, tender, abdominal drain, dressing in place, liver spleen not palpable, no masses palpable. PSYCH: Alert and oriented x3; mood and affect normal. INVESTIGATIONS, reviewed in the clinical context: White count 9.2 hemoglobin 11.3 potassium 3.8 Previous testing White count 14.3. Hemoglobin 13.9 potassium 3.9 creatinine 1.2 Computed tomography scan of the abdomen-fluid and flat stranding around the normal appendix Assessment: -Acute appendicitis with perforation leading to open appendectomy, causing sepsis, POA -Secondary peritonitis from above -Obesity BMI 37.3 -Chronic insomnia idiopathic -Anxiety disorder not otherwise specified -Hyperlipidemia Plan: Continue on IV Flagyl, IV Zosyn,, IV fluids. Remains On clear liquids. Encouraged to be out of bed and ambulate Thank you Dr. Farr
[2020-01-15] MEDS: D5-0.45% NACL WITH KCL 20MEQ/L 1,000 ML IV SCH ×2 (00:11→13:47)
[2020-01-15] MEDS: PIPERACILLIN-TAZOBACTAM 3.375 GM in SODIUM CHLORIDE 0.9% 100 ML IVPB SCH ×3 (00:12→15:40)
[2020-01-15] MEDS: HYDROcodone/APAP 5-325MG 1 EACH TAB PO PRN ×4 (02:49→20:50)
[2020-01-15] MEDS: metroNIDAZOLE-NS PMX 500 MG in SALINE 1 100ML.BAG IVPB SCH ×4 (02:49→20:43)
--- NOTE | 2020-01-15 06:18 | PN ---
PROGRESS NOTE DATE OF SERVICE: 01/14/2020 REASON FOR FOLLOWUP: Perforated appendicitis and gram-negative bacteremia in this patient with clinical course complicated by development of gram positive blood culture with gram-negative bacilli report this morning. The patient is currently afebrile. He is breathing comfortably. Denies having any chest pain. No shortness of breath or cough. Abdominal pain is currently controlled. No nausea, vomiting or diarrhea. PHYSICAL EXAMINATION: Blood pressure is 101/67 with a pulse of 91, temperature 98.9. He is 95% on room air. General description is a middle-aged male lying in bed in no distress. Respiratory system: Unlabored breathing, clear to auscultation anteriorly. Heart S1, S2. Regular rate and rhythm. Abdomen is soft, mildly tender, no guarding or rigidity. Extremities with no edema to the feet. LABS: Hemoglobin 11.2, white count 9.2, BUN of 12, creatinine 1.0. Blood culture with gram- negative bacilli. DIAGNOSTIC IMPRESSION AND PLAN: Patient with perforated appendicitis status post appendectomy, now with evidence of gram-negative bacteremia. The patient is covered with Zosyn. Blood cultures will be repeated. Discharge antibiotic depending upon the culture report. Continue supportive care. MMODL / IJN: [id number] /
[2020-01-15 06:21] LABS: Basophils % (A) 0 %; Eosinophils # (A) 0.4 k/uL (0-0.7); Eosinophils % (A) 6 %; HCT 33.2 % (39.0-53.0); HGB 10.8 gm/dL (13.0-17.5); Lymphocytes # (A) 0.8 k/uL (1.0-4.8); Lymphocytes % (A) 10 %; MCH 28.9 pg (25.0-35.0); MCHC 32.5 g/dL (31.0-37.0); Mean Platelet Volume 8.2; Monocytes # (A) 0.5 k/uL (0-1.0); Monocytes % (A) 6 %; Neutrophils # (A) 5.8 k/uL (1.3-7.7); Neutrophils % (A) 77 %; Platelet Count 241 k/uL (150-450); RBC 3.73 m/uL (4.30-5.90); RDW 12.4 % (11.5-15.5); WBC 7.6 k/uL (3.8-10.6)
[2020-01-15] MEDS: ENOXAPARIN 40 MG/0.4 ML SYRINGE SQ SCH (07:41)
[2020-01-15 10:58] LABS: African American GFR (CKD) 117.5 (60.0-200.0); Anion Gap 5.3 mmol/L (4.00-12.00); C Reactive Protein 18.9 mg/dL (0.0-0.8); Carbon Dioxide 23.7 mmol/L (21.6-31.8); Non-African American GFR(CKD) 101.4 (60.0-200.0); Potassium 3.8 mmol/L (3.5-5.5)
--- NOTE | 2020-01-15 11:17 | P.PN ---
Subjective Progress Note Date: 01/15/20 CHIEF COMPLAINT: Abdominal pain HISTORY OF PRESENT ILLNESS: Status post open appendectomy for perforated appendicitis. Patient did have some nausea this morning that is improving. He did have a bowel movement. He is tolerating low-fat diet. He reports that his pain is controlled. He is afebrile. White count 7.6 hemoglobin 10.8. Patient does have a blood culture with gram-negative bacilli. Followed by ID. Case discussed with infectious disease. Awaiting blood cultures finalize. PHYSICAL EXAM: VITAL SIGNS: Reviewed. GENERAL: Well-developed in no acute distress. HEENT: No sclera icterus. Extraocular movements grossly intact. Moist buccal mucosa. Head is atraumatic, normocephalic. ABDOMEN: Soft. Nondistended. Nontender. Dressing with some minimal drainage noted at the distal part of the dressing. Otherwise clean dry and intact NEUROLOGIC: Alert and oriented. Cranial nerves II through XII grossly intact. ASSESSMENT: 1. Perforated appendicitis status post open appendectomy 2. Gram-negative bacteremia PLAN: -Continue low-fat diet -Continue antibiotics per ID -Follow up on repeat blood culture -Continue pain medication as needed -Encourage patient to ambulate and use incentive spirometer Physician Machine [employer] note has been reviewed by physician. Signing provider agrees with the documented findings, assessment, and plan of care. Objective - Vital Signs Vital signs: Vital Signs Temp 98.5 F 01/15/20 07:00 Pulse 89 01/15/20 08:00 Resp 18 01/15/20 08:00 BP 133/86 01/15/20 07:00 Pulse Ox 94 L 01/15/20 07:00 Intake & Output 01/14/20 01/15/20 01/15/20 18:59 06:59 18:59 Intake Total 1255 Output Total 65 35 Balance 1190 -35 Intake: Intake, IV Titration 675 Amount D5-0.45% NaCl with KCl 475 20Meq/l 1,000 ml @ 125 mls/hr IV .Q8H BHAVIK Rx#: [id number] Piperacillin-Tazobactam 3 100 .375 gm In Sodium Chloride 0.9% 100 ml @ 25 mls/hr IVPB Q8HR [facility]AVIK Rx# :[id number] PMX 500 100 mg In Saline 1 100ml.bag @ 100 mls/hr IVPB Q6H [facility]AVIK Rx#:[id number] Oral 580 Output: Drainage 65 35 Right Abdomen 65 35 Other: Voiding Method Toilet Toilet Toilet Urinal Urinal Urinal # Voids 2 # Bowel Movements 1 - Labs CBC & Chem 7: 01/15/20 05:48 01/15/20 05:48 Labs: Abnormal Lab Results - Last 24 Hours (Table) 01/14/20 01/15/20 01/15/20 Range/Units 05:52 05:48 05:48 RBC 3.73 L (4.30-5.90) m/uL Hgb 10.8 L (13.0-17.5) gm/dL Hct 33.2 L (39.0-53.0) % Lymphocytes # 0.8 L (1.0-4.8) k/uL BUN/Creatinine Ratio 10.00 L (12.00-20.00) Ratio Calcium 8.1 L 8.0 L (8.7-10.3) mg/dL C-Reactive Protein 18.9 H (0.0-0.8) mg/dL Total Protein 5.1 L (6.2-8.2) g/dL Albumin 3.30 L (3.80-4.90) g/dL Microbiology - Last 24 Hours (Table) 01/12/20 03:04 Blood Culture Gram Stain - Preliminary Blood
--- NOTE | 2020-01-15 16:00 | PN ---
PROGRESS NOTE DATE OF SERVICE: 01/15/2020 REASON FOR FOLLOWUP: Perforated appendicitis and Gram-negative bacteremia. INTERVAL HISTORY: The patient is currently afebrile. The patient is breathing comfortably. The patient denies having any chest pain or shortness of breath or cough. Minimal abdominal pain. No worsening. He has been passing gas. PHYSICAL EXAMINATION: Blood pressure 133/86, pulse of 89, temperature 98.5. He is 94% on room air. General description is a middle-aged male lying in bed in no distress. RESPIRATORY SYSTEM: Unlabored breathing. Clear to auscultation anteriorly. HEART: S1, S2. Regular rate and rhythm. ABDOMEN: Soft. Mild tenderness. No guarding or rigidity. LABS: Hemoglobin is 10.9, white count 7.6. Creatinine 0.9. Blood culture with Gram-negative bacilli. ID and sensitivities pending. DIAGNOSTIC IMPRESSION AND PLAN: Patient with perforated appendicitis, status post appendectomy with Gram-negative bacteremia. ID and sensitivity of the Gram-negative and the blood are still pending. Follow-up blood culture has been done. The patient is covered with Zosyn. Will wait for the blood culture to finalize to determine discharge antibiotics. Continue with supportive care. MMODL / IJN: [id number] /
--- NOTE | 2020-01-15 16:57 | P.PN ---
Progress Note - Text Progress Note Date: 01/15/20 - Chief Complaint Abdominal pain History of presenting complaint: This is a pleasant 49-year-old patient of Dr. Alcala. Chronic stable medical conditions include insomnia, anxiety, hyperlipidemia. Patient is not taking Adipex-p. Patient had presented to the ER after was having increasing pain in the right lower quadrant coming on over course of 3 days. Progressively getting worse. Had some nausea. But no vomiting. No fever and chills. Computed tomography scan of the ER showed moderate to severe surrounding inflammatory changes of the appendix. Was taken to the operating room yesterday. Found to have perforated appendix with purulent fluid throughout the peritoneal cavity. Patient was converted to an open procedure. Has a drain in place. This morning the patient has some pain. on clear liquids. Admitted with acute appendicitis with perforation leading to open appendectomy- causing sepsis and secondary peritonitis. On IV Zosyn and IV Flagyl. Abdominal drain in place. Today-had a bowel movement yesterday. Pain control. Advance to regular diet. Has been out of bed. Ambulating. Review of systems: Was done for constitutional, cardiovascular, GI, pulmonary. relevant finding as above Active Medications Acetaminophen (Acetaminophen Tab 325 Mg Tab) 650 mg PO Q6HR PRN PRN Reason: Mild Pain or Fever >= 100.5 Last Admin: 01/12/20 21:15 Dose: 650 mg Documented by: Hydrocodone Bitart/Acetaminophen (Hydrocodone/Apap 5-325mg 1 Each Tab) 2 each PO Q6HR PRN PRN Reason: Moderate to Severe Pain Last Admin: 01/15/20 15:40 Dose: 2 each Documented by: Benzocaine/Menthol (Benzocaine/Menthol Lozeng 1 Each Lozenge) 1 each MUCOUS MEM Q6HR PRN PRN Reason: Sore Throat Last Admin: 01/13/20 16:48 Dose: 1 each Documented by: Enoxaparin Sodium (Enoxaparin 40 Mg/0.4 Ml Syringe) 40 mg SQ DAILY BHAVIK Last Admin: 01/15/20 07:41 Dose: 40 mg Documented by: Piperacillin Sod/Tazobactam (Sod 3.375 gm/ Sodium Chloride) 100 mls @ 25 mls/hr IVPB Q8HR BHAVIK Last Admin: 01/15/20 15:40 Dose: 25 mls/hr Documented by: Metronidazole 500 mg/ IV (Solution) 100 mls @ 100 mls/hr IVPB Q6H BHAVIK Last Admin: 01/15/20 15:40 Dose: 100 mls/hr Documented by: Naloxone HCl (Naloxone 0.4 Mg/Ml 1 Ml Vial) 0.2 mg IV Q2M PRN PRN Reason: Opioid Reversal Ondansetron HCl (Ondansetron 4 Mg/2 Ml Vial) 4 mg IVP Q6HR PRN PRN Reason: Nausea And Vomiting Physical examination: VITAL SIGNS: 99.5, 93, 18, 138/81, 92% room air GENERAL: laying in bed, comfortable EYES: Pupils equal. Conjunctiva normal. HEENT: External appearance of nose and ears normal, oral cavity grossly normal. NECK: JVD not raised; masses not palpable. HEART: First and second heart sounds are normal; no edema. LUNGS: Respiratory rate normal; clear to auscultation. ABDOMEN: Soft, minimal tenderness, abdominal drain, dressing in place, liver s pleen not palpable, no masses palpable. PSYCH: Alert and oriented x3; mood and affect normal. INVESTIGATIONS, reviewed in the clinical context: White count 7.6 hemoglobin 10.8 potassium 3.8 creatinine 0.9, CRP 18.9 Blood fvxvqbj-xbll-mjztckoi rods from January 11 Previous testing White count 14.3. Hemoglobin 13.9 potassium 3.9 creatinine 1.2 Computed tomography scan of the abdomen-fluid and flat stranding around the normal appendix Assessment: -Acute appendicitis with perforation leading to open appendectomy, causing sepsis, POA, with blood cultures positive for gram-negative rods -Secondary peritonitis from above -Obesity BMI 37.3 -Chronic insomnia idiopathic -Anxiety disorder not otherwise specified -Hyperlipidemia Plan: Continue on IV Flagyl, IV Zosyn,, IV fluids. Advance to full regular diet. Awaiting culture results. Improving well Thank you Dr. Farr
[2020-01-16] MEDS: PIPERACILLIN-TAZOBACTAM 3.375 GM in SODIUM CHLORIDE 0.9% 100 ML IVPB SCH ×3 (00:29→17:21)
[2020-01-16] MEDS: metroNIDAZOLE-NS PMX 500 MG in SALINE 1 100ML.BAG IVPB SCH ×4 (04:24→20:24)
[2020-01-16] MEDS: HYDROcodone/APAP 5-325MG 1 EACH TAB PO PRN ×3 (06:35→20:22)
[2020-01-16] MEDS: ENOXAPARIN 40 MG/0.4 ML SYRINGE SQ SCH (08:07)
--- NOTE | 2020-01-16 11:54 | P.PN ---
Subjective Progress Note Date: 01/16/20 CHIEF COMPLAINT: Abdominal pain HISTORY OF PRESENT ILLNESS: Status post open appendectomy for perforated appendicitis. Patient did have some nausea this morning that is improving. He did have a bowel movement. He is tolerating low-fat diet. He reports that his pain is controlled. He is afebrile. Patient does have a blood culture with gram-negative bacilli. Followed by ID. Case discussed with infectious disease. Awaiting blood cultures finalize. PHYSICAL EXAM: VITAL SIGNS: Reviewed. GENERAL: Well-developed in no acute distress. HEENT: No sclera icterus. Extraocular movements grossly intact. Moist buccal mucosa. Head is atraumatic, normocephalic. ABDOMEN: Soft. Nondistended. Nontender. Dressing with some minimal drainage noted at the distal part of the dressing. Incision clean dry and intact NEUROLOGIC: Alert and oriented. Cranial nerves II through XII grossly intact. ASSESSMENT: 1. Perforated appendicitis status post open appendectomy 2. Gram-negative bacteremia PLAN: -Continue low-fat diet -Continue antibiotics per ID -Follow up on repeat blood culture -Continue pain medication as needed -Encourage patient to ambulate and use incentive spirometer Physician Defense Attorney note has been reviewed by physician. Signing provider agrees with the documented findings, assessment, and plan of care. Objective - Vital Signs Vital signs: Vital Signs Temp 98.9 F 01/16/20 07:00 Pulse 91 01/16/20 07:00 Resp 18 01/16/20 07:00 BP 158/79 01/16/20 07:00 Pulse Ox 93 L 01/16/20 07:00 Intake & Output 01/15/20 01/16/20 01/16/20 18:59 06:59 18:59 Output Total 400 15 Balance -400 -15 Output: Drainage 15 Right Abdomen 15 Urine 400 Other: Voiding Method Toilet Toilet Urinal Urinal # Voids 2 - Labs CBC & Chem 7: 01/15/20 05:48 01/15/20 05:48 Labs: Microbiology - Last 24 Hours (Table) 01/12/20 03:04 Blood Culture Gram Stain - Preliminary Blood Blood Culture - Preliminary Anaerobic Gm Negative Bacilli 01/15/20 05:48 Blood Culture - Preliminary Blood No Growth after 24 hours
[2020-01-16] MEDS: ONDANSETRON 4 MG/2 ML VIAL IVP PRN ×2 (11:57→20:23)
[2020-01-16 13:21] LABS: Creatine Kinase MB 0.3 ng/mL (0.0-2.4); Troponin I <0.012 ng/mL (0.000-0.034)
[2020-01-16 16:20] LABS: Creatine Kinase MB <0.2 ng/mL (0.0-2.4); Troponin I <0.012 ng/mL (0.000-0.034)
--- NOTE | 2020-01-16 17:06 | P.PN ---
Progress Note - Text Progress Note Date: 01/16/20 - Chief Complaint Abdominal pain History of presenting complaint: This is a pleasant 49-year-old patient of Dr. Alcala. Chronic stable medical conditions include insomnia, anxiety, hyperlipidemia. Patient is not taking Adipex-p. Patient had presented to the ER after was having increasing pain in the right lower quadrant coming on over course of 3 days. Progressively getting worse. Had some nausea. But no vomiting. No fever and chills. Computed tomography scan of the ER showed moderate to severe surrounding inflammatory changes of the appendix. Was taken to the operating room yesterday. Found to have perforated appendix with purulent fluid throughout the peritoneal cavity. Patient was converted to an open procedure. Has a drain in place. This morning the patient has some pain. on clear liquids. Admitted with acute appendicitis with perforation leading to open appendectomy- causing sepsis and secondary peritonitis. On IV Zosyn and IV Flagyl. Abdominal drain in place. Today-had a few seconds of chest pain today. He thinks lasting less than a minute. EKG was unremarkable. Tolerating diet. Ambulating. Review of systems: Was done for constitutional, cardiovascular, GI, pulmonary. relevant finding as above Active Medications Acetaminophen (Acetaminophen Tab 325 Mg Tab) 650 mg PO Q6HR PRN PRN Reason: Mild Pain or Fever >= 100.5 Last Admin: 01/12/20 21:15 Dose: 650 mg Documented by: Hydrocodone Bitart/Acetaminophen (Hydrocodone/Apap 5-325mg 1 Each Tab) 2 each PO Q6HR PRN PRN Reason: Moderate to Severe Pain Last Admin: 01/16/20 13:35 Dose: 2 each Documented by: Benzocaine/Menthol (Benzocaine/Menthol Lozeng 1 Each Lozenge) 1 each MUCOUS MEM Q6HR PRN PRN Reason: Sore Throat Last Admin: 01/13/20 16:48 Dose: 1 each Documented by: Enoxaparin Sodium (Enoxaparin 40 Mg/0.4 Ml Syringe) 40 mg SQ DAILY BHAVIK Last Admin: 01/16/20 08:07 Dose: 40 mg Documented by: Piperacillin Sod/Tazobactam (Sod 3.375 gm/ Sodium Chloride) 100 mls @ 25 mls/hr IVPB Q8HR BHAVIK Last Admin: 01/16/20 08:08 Dose: 25 mls/hr Documented by: Metronidazole 500 mg/ IV (Solution) 100 mls @ 100 mls/hr IVPB Q6H BHAVIK Last Admin: 01/16/20 13:36 Dose: 100 mls/hr Documented by: Naloxone HCl (Naloxone 0.4 Mg/Ml 1 Ml Vial) 0.2 mg IV Q2M PRN PRN Reason: Opioid Reversal Ondansetron HCl (Ondansetron 4 Mg/2 Ml Vial) 4 mg IVP Q6HR PRN PRN Reason: Nausea And Vomiting Last Admin: 01/16/20 11:57 Dose: 4 mg Documented by: Physical examination: VITAL SIGNS: 98.9, 91, 18, 158/79, 93% room air GENERAL: laying in bed, comfortable EYES: Pupils equal. Conjunctiva normal. HEENT: External appearance of nose and ears normal, oral cavity grossly normal. NECK: JVD not raised; masses not palpable. HEART: First and second heart sounds are normal; no edema. LUNGS: Respiratory rate normal; clear to auscultation. ABDOMEN: Soft, minimal tenderness, abdominal drain, dressing in place, liver spleen not palpable, no masses palpable. PSYCH: Alert and oriented x3; mood and affect normal. INVESTIGATIONS, reviewed in the clinical context: White count 7.6 hemoglobin 10.8 potassium 3.8 creatinine 0.9, CRP 18.9 Blood clpttpq-okum-bhstcibw rods from January 11 Previous testing White count 14.3. Hemoglobin 13.9 potassium 3.9 creatinine 1.2 Computed tomography scan of the abdomen-fluid and flat stranding around the normal appendix Assessment: -Acute appendicitis with perforation leading to open appendectomy, causing sepsis, POA, with blood cultures positive for gram-negative rods -Secondary peritonitis from above -Obesity BMI 37.3 -Chronic insomnia idiopathic -Anxiety disorder not otherwise specified -Hyperlipidemia Plan: -on IV Flagyl, IV Zosyn,, tolerating diet. Checking 3 troponins. First one negative. Chest pain lasting for about a minute likely heartburn. Repeat cultures pending. Thank you Dr. Farr
--- NOTE | 2020-01-16 17:25 | PN ---
PROGRESS NOTE DATE OF SERVICE: 01/16/2020 REASON FOR FOLLOWUP: Acute perforated appendicitis and bacteremia. INTERVAL HISTORY: The patient is currently afebrile, the patient is breathing comfortably. Not feeling as good today compared to yesterday. Denies mostly abdominal pain, some nausea but no vomiting. Did have bowel movement. PHYSICAL EXAMINATION: Blood pressure 137/78 with a pulse of 83, temperature 98.3, she is 96% on room air. General description is a middle-aged male, lying in bed in no distress. RESPIRATORY SYSTEM: Unlabored breathing, clear to auscultation anteriorly. HEART: S1, S2. Regular rate and rhythm. ABDOMEN: Soft, no tenderness. LABS: No new labs have been obtained today. DIAGNOSTIC IMPRESSION AND PLAN: Patient with acute perforated appendicitis, status post appendectomy, now with evidence of anaerobic Gram-negative bacteremia. Patient is on Zosyn, Flagyl. Will finish therapy with oral Cipro and Flagyl and continue supportive care. MMODL / IJN: [id number] /
[2020-01-16 19:29] LABS: Creatine Kinase MB <0.2 ng/mL (0.0-2.4); Troponin I <0.012 ng/mL (0.000-0.034)
[2020-01-17] MEDS: PIPERACILLIN-TAZOBACTAM 3.375 GM in SODIUM CHLORIDE 0.9% 100 ML IVPB SCH ×2 (00:22→10:09)
[2020-01-17] MEDS: metroNIDAZOLE-NS PMX 500 MG in SALINE 1 100ML.BAG IVPB SCH ×3 (01:48→14:57)
[2020-01-17] MEDS: HYDROcodone/APAP 5-325MG 1 EACH TAB PO PRN ×2 (01:55→07:25)
[2020-01-17] MEDS: ONDANSETRON 4 MG/2 ML VIAL IVP PRN (07:25)
[2020-01-17] MEDS: ENOXAPARIN 40 MG/0.4 ML SYRINGE SQ SCH (10:08)
--- NOTE | 2020-01-17 12:09 | PN ---
PROGRESS NOTE DATE OF SERVICE: 01/17/2020 REASON FOR FOLLOWUP: Perforated appendicitis and bacteremia. INTERVAL HISTORY: The patient is currently afebrile. Patient is feeling better. Breathing comfortably. Denies having any chest pain. No shortness of breath, no cough. No nausea. No abdominal pain. no diarrhea. PHYSICAL EXAMINATION: Blood pressure 123/80 with a pulse of 83, temperature 98.1, he is 97% on room air. General description is a middle-aged male, up in the room in no distress. RESPIRATORY SYSTEM: Unlabored breathing, clear to auscultation anteriorly. HEART: S1, S2. Regular rate and rhythm. ABDOMEN: Soft, no tenderness. LABS: No new labs have been obtained today. Blood culture repeat has been negative so far. DIAGNOSTIC IMPRESSION AND PLAN: Patient with acute perforated appendicitis, status post appendectomy with evidence of anaerobic Gram-negative bacteremia, general clinical improvement. Followup blood culture has been negative. White count normalized. Finish therapy with oral Cipro and Flagyl for 10 days and close outpatient followup. Discussed with the nurse practitioner for admitting team. MMODL / IJN: [id number] /
--- NOTE | 2020-01-17 14:24 | P.DS ---
Providers Date of admission: 01/13/20 09:36 Expected date of discharge: 01/17/20 Attending physician: Dima Farr Consults: 01/12/20 14:41 Consult Physician Routine Consulting Provider: Bakari Spring Consult Reason/Comments: Medical management Do you want consulting provider notified?: Yes Consult Physician Routine Consulting Provider: Francie Dennis Consult Reason/Comments: Perforated appendicitis Do you want consulting provider notified?: Yes Primary care physician: Issa Alcala Hospital Course: Discharge diagnosis 1. Perforated appendicitis status post open appendectomy 2. Gram-negative bacteremia Hospital course This is a 49-year-old male with a known history of hyperlipidemia. He presents to the emergency room with right lower quadrant abdominal pain for 3 days. He did have a fever on admission. Computed tomography scan findings did show evidence of an acute appendicitis. He is status post open appendectomy for perforated appendicitis. His pain is controlled. He denies any nausea or vomiting. He is tolerating diet. He is having bowel movements. He is up and ambulating. He is afebrile. White count is normal. Infectious diseases recommending Cipro and Flagyl for 10 more days. His repeat blood cultures were negative. Patient is stable for discharge. Please refer to chart for any further details. Physician Band Saw Marker note has been reviewed by physician. Signing provider agrees with the documented findings, assessment, and plan of care. Patient Condition at Discharge: Stable Plan - Discharge Summary New Discharge Prescriptions: New Ciprofloxacin HCl [Cipro] 500 mg PO Q12H 10 Days #20 tab metroNIDAZOLE [Flagyl] 500 mg PO Q8HR #30 tab Docusate [Colace] 100 mg PO BID #30 capsule HYDROcodone/APAP 7.5-325MG [[place] 7.5-325] 1 tab PO Q4H PRN 3 Days #18 tab PRN Reason: Pain Continue Zolpidem [Ambien] 10 mg PO HS PRN PRN Reason: Insomnia Phentermine HCl [Adipex-P] 37.5 mg PO DAILY DULoxetine HCL [Cymbalta] 30 mg PO DAILY Atorvastatin [Lipitor] 10 mg PO DAILY Discontinued Ibuprofen [Motrin] 800 mg PO BID PRN PRN Reason: Pain Discharge Medication List Atorvastatin [Lipitor] 10 mg PO DAILY 01/12/20 [History] DULoxetine HCL [Cymbalta] 30 mg PO DAILY 01/12/20 [History] Phentermine HCl [Adipex-P] 37.5 mg PO DAILY 01/12/20 [History] Zolpidem [Ambien] 10 mg PO HS PRN 01/12/20 [History] Ciprofloxacin HCl [Cipro] 500 mg PO Q12H 10 Days #20 tab 01/17/20 [Rx] Docusate [Colace] 100 mg PO BID #30 capsule 01/17/20 [Rx] HYDROcodone/APAP 7.5-325MG [[place] 7.5-325] 1 tab PO Q4H PRN 3 Days #18 tab 01/17/20 [Rx] metroNIDAZOLE [Flagyl] 500 mg PO Q8HR #30 tab 01/17/20 [Rx] Follow up Appointment(s)/Referral(s): Blaine Alcala MD [Primary Care Provider] - 1-2 days Dima Farr MD [STAFF PHYSICIAN] - 1 Week Patient Instructions/Handouts: Low Fat Diet (DC), Low Fiber Diet (DC), Open Appendectomy (DC) Discharge Disposition: HOME SELF-CARE
[2020-01-17 15:29] VITALS: BP 128/83; PULSE 87; RESP 17; TEMP 98.9
--- NOTE | 2020-01-17 18:21 | P.PN ---
Progress Note - Text Progress Note Date: 01/17/20 - Chief Complaint Abdominal pain History of presenting complaint: This is a pleasant 49-year-old patient of Dr. Alcala. Chronic stable medical conditions include insomnia, anxiety, hyperlipidemia. Patient is not taking Adipex-p. Patient had presented to the ER after was having increasing pain in the right lower quadrant coming on over course of 3 days. Progressively getting worse. Had some nausea. But no vomiting. No fever and chills. Computed tomography scan of the ER showed moderate to severe surrounding inflammatory changes of the appendix. Was taken to the operating room yesterday. Found to have perforated appendix with purulent fluid throughout the peritoneal cavity. Patient was converted to an open procedure. Has a drain in place. This morning the patient has some pain. on clear liquids. Admitted with acute appendicitis with perforation leading to open appendectomy- causing sepsis and secondary peritonitis. On IV Zosyn and IV Flagyl. Abdominal drain in place. Today-tolerating diet. Had a bowel movement. Pain well controlled. Up and about. Feels well. Review of systems: Was done for constitutional, cardiovascular, GI, pulmonary. relevant finding as above Current medications reviewed in today's electronic records Physical examination: VITAL SIGNS: 99.1, 83, 19, 123/80, 97% room air GENERAL: Sitting up, comfortable EYES: Pupils equal. Conjunctiva normal. HEENT: External appearance of nose and ears normal, oral cavity grossly normal. NECK: JVD not raised; masses not palpable. HEART: First and second heart sounds are normal; no edema. LUNGS: Respiratory rate normal; clear to auscultation. ABDOMEN: Soft, minimal tenderness, abdominal drain, dressing in place, liver spleen not palpable, no masses palpable. PSYCH: Alert and oriented x3; mood and affect normal. INVESTIGATIONS, reviewed in the clinical context: White count 7.6 hemoglobin 10.8 potassium 3.8 creatinine 0.9, CRP 18.9 Blood gpgvvov-rwhe-vjkmjoar rods from January 11 Previous testing White count 14.3. Hemoglobin 13.9 potassium 3.9 creatinine 1.2 Computed tomography scan of the abdomen-fluid and flat stranding around the normal appendix Assessment: -Acute appendicitis with perforation leading to open appendectomy, causing sepsis, POA, with blood cultures positive for gram-negative rods -Secondary peritonitis from above -Obesity BMI 37.3 -Chronic insomnia idiopathic -Anxiety disorder not otherwise specified -Hyperlipidemia Plan: Patient being changed to ciprofloxacin and Flagyl per ID. Otherwise doing well. Care was discussed with the patient. To follow-up with family doctor. Thank you Dr. Farr
== END 2020-01-17 16:45 | disposition home or self-care (01) | DRG 853 ==
LOC: EC 08:33 → 1SOBS 10:08 → 4SSUR 15:54 → OBSVTOIN 01-13 09:36
PROVIDERS: ADMIT Surgery; ATTEND Surgery
PROC: 0DTJ0ZZ Resection of Appendix, Open Approach (ICD-10-PCS; principal; 2020-01-12 12:50)
DX: A41.50 Gram-negative sepsis, unspecified (principal); K35.32 Acute appendicitis with perforation, localized peritonitis, and gangrene, without abscess; E66.9 Obesity, unspecified; E78.5 Hyperlipidemia, unspecified; F41.9 Anxiety disorder, unspecified; F51.04 Psychophysiologic insomnia; Z53.31 Laparoscopic surgical procedure converted to open procedure; Z68.37 Body mass index [BMI] 37.0-37.9, adult; Z79.899 Other long term (current) drug therapy; Z87.891 Personal history of nicotine dependence; Z79.1 Long term (current) use of non-steroidal anti-inflammatories (NSAID)
CPT/HCPCS: 36415; 74177; 80048; 80053; 81003; 82150; 82553; 83690; 84484; 85025; 86140; 87040; 88304; 93005; 96361; 96365; 96375; 96376; 99285

== ENCOUNTER 2020-07-25 17:25 | Emergency (ER) | payer BC ==
[2020-07-25 17:32] VITALS: RESP 18
[2020-07-25] MEDS ORDERED: SODIUM CHLORIDE 0.9% 1,000 ML IV STA (18:12)
[2020-07-25] MEDS ORDERED: METOCLOPRAMIDE 5 MG/ML 2 ML VIAL IVP STA (18:13)
--- NOTE | 2020-07-25 18:15 | XR ---
EXAMINATION: XR chest 1V portable DATE AND TIME: 07/25/2020 5:47 PM CLINICAL INDICATION: [facility]; covid TECHNIQUE: AP upright portable COMPARISON: 09/10/2012 FINDINGS: There is what appears to be a ring of added opacity right upper lung zone, with the ring diameter leyla ng approximately 9 cm, at the right inferior lateral margin which there is a 1.5 cm opacity. The lung s are otherwise clear and well-expanded bilaterally. The pleural spaces are negative. The cardiac silhouette is not enlarged. The remainder of the mediastinal silhouette is unremarkable. The skeletal structures and soft tissues are negative for acute findings. IMPRESSION: Right upper lung zone process which can be further characterized using CT.
--- NOTE | 2020-07-25 18:18 | ED ---
General Adult HPI - General Chief complaint: Upper Respiratory Infection Stated complaint: Covid+, worsening symptoms Time Seen by Provider: 07/25/20 17:33 Source: patient Mode of arrival: ambulatory Limitations: no limitations - History of Present Illness Initial comments: Dictation was produced using [employer] dictation software. please excuse any g rammatical, word or spelling errors. This patient was cared for during a federal and state declared state of emergency secondary to Covid 19 Chief Complaint: 49-year-old male positive for COVID-19 presents with headache, excessive sleeping. History of Present Illness: 49-year-old male he denies any medical problems. He states that he received the first of two moderna vaccines 2 weeks ago. The day after the vaccine and began having symptoms of COVID-19. He was tested for 5 days later and was positive. Patient states that he's been having symptoms of headache, excessive sleeping generalized weakness. States that his symptoms have been ongoing for more than 10 days. Denies any significant shortness of breath however he does feel slightly dyspneic. States that he has a mild headache. States the symptoms are slightly improved with Tylenol and Motrin. The ROS documented in this emergency department record has been reviewed and confirmed by me. Those systems with pertinent positive or negative responses have been documented in the HPI. All other systems are other negative and/or noncontributory. PHYSICAL EXAM: General Impression: Alert and oriented x3, not in acute distress HEENT: Normocephalic atraumatic, extra-ocular movements intact, pupils equal and reactive to light bilaterally, mucous membranes moist. Cardiovascular: Heart regular rate and rhythm Chest: Able to complete full sentences, no retractions, no tachypnea Abdomen: abdomen soft, non-tender, non-distended, no organomegaly Musculoskeletal: Pulses present and equal in all extremities, no peripheral edema Motor: no focal deficits noted Neurological: CN II-XII grossly intact, no focal motor or sensory deficits noted Skin: Intact with no visualized rashes Psych: Normal affect and mood ED course: 49-year-old male presents with persistent COVID-19 symptoms. He has symptoms of headache, excessive sleepiness and mild dyspnea. Vital signs upon arrival are within acceptable limits. Patient is not hypoxic. Laboratory evaluation obtained. CBC, metabolic panel is unremarkable. Computed tomography scan of the brain shows no acute processes. Chest x-ray shows opacity in the right lung. Radiology recommends CT. CT is ordered. Patient reevaluated at 7:15 PM with improvement of his headache after headache cocktail. Computed tomography scan of the chest shows crackles capacity. Clinical presentation consistent with atypical pneumonia from COVID-19. Patient reevaluated at 9:12 PM in stable medical condition. Patient will be discharged he is not hypoxic He is advised to monitor symptoms at home. Is advised to quarantine. Told to return to the emergency Department with any worsening symptoms. - Related Data Home Medications Medication Instructions Recorded Confirmed Atorvastatin [Lipitor] 10 mg PO HS 01/12/20 07/25/20 Zolpidem [Ambien] 10 mg PO HS PRN 01/12/20 07/25/20 Acetaminophen Tab [Tylenol Tab] 1,000 mg PO Q6H PRN 07/25/20 07/25/20 Azithromycin [Zithromax Z-pack (6 See Taper PO DAILY 07/25/20 07/25/20 tabs)] Ibuprofen [Motrin] 800 mg PO BID PRN 07/25/20 07/25/20 Allergies Allergy/AdvReac Type Severity Reaction Status Date / Time No Known Allergies Allergy Verified 07/25/20 18:35 Review of Systems ROS Statement: Those systems with pertinent positive or pertinent negative responses have been documented in the HPI. ROS Other: All systems not noted in ROS Statement are negative. Past Medical History Past Medical History: Hyperlipidemia Additional Past Medical History / Comment(s): disc herniation History of Any Multi-Drug Resistant Organisms: None Reported Past Surgical History: No Surgical Hx Reported Additional Past Surgical History / Comment(s): left knee, hand Past Psychological History: No Psychological Hx Reported Smoking Status: Former smoker Past Alcohol Use History: Occasional Past Drug Use History: None Reported General Exam Limitations: no limitations Course Vital Signs 07/25/20 17:28 Temperature 97.6 F Pulse Rate 86 Respiratory 18 Rate Blood Pressure 135/84 O2 Sat by Pulse 98 Oximetry Medical Decision Making - Lab Data Result diagrams: 07/25/20 18:35 07/25/20 18:35 Lab Results 07/25/20 07/25/20 Range/Units 18:35 18:35 WBC 6.0 (3.8-10.6) k/uL RBC 4.85 (4.30-5.90) m/uL Hgb 14.7 (13.0-17.5) gm/dL Hct 41.6 (39.0-53.0) % MCV 85.7 (80.0-100.0) fL MCH 30.4 (25.0-35.0) pg MCHC 35.4 (31.0-37.0) g/dL RDW 13.0 (11.5-15.5) % Plt Count 278 (150-450) k/uL MPV 7.7 Neutrophils % 66 % Lymphocytes % 21 % Monocytes % 6 % Eosinophils % 5 % Basophils % 0 % Neutrophils # 3.9 (1.3-7.7) k/uL Lymphocytes # 1.2 (1.0-4.8) k/uL Monocytes # 0.4 (0-1.0) k/uL Eosinophils # 0.3 (0-0.7) k/uL Basophils # 0.0 (0-0.2) k/uL Sodium 138 (137-145) mmol/L Potassium 4.1 (3.5-5.1) mmol/L Chloride 108 H (98-107) mmol/L Carbon Dioxide 21 L (22-30) mmol/L Anion Gap 9 mmol/L BUN 16 (9-20) mg/dL Creatinine 0.70 (0.66-1.25) mg/dL Est GFR (CKD-EPI)AfAm >90 (>60 ml/min/1.73 sqM) Est GFR (CKD-EPI)NonAf >90 (>60 ml/min/1.73 sqM) Glucose 152 H (74-99) mg/dL Calcium 9.3 (8.4-10.2) mg/dL Disposition Clinical Impression: COVID-19 Disposition: HOME SELF-CARE Condition: Fair Instructions (If sedation given, give patient instructions): Coronavirus D isease 2019 (COVID-19) Additional Instructions: Today you were evaluated for symptoms consistent with upper respiratory infection. Today you evaluated for Covid 19. Your are stable for discharge, however it is instructed to to seek immediate medical attention especially if you develop worsening symptoms especially respiratory distress. If possible, try to obtain a pulse oximeter and monitor your oxygen at home. In the meantime please remain in quarantine for 14 days. For any other questions please contact Petra for here in emergency department or [facility] at [phone] Is patient prescribed a controlled substance at d/c from ED?: No Referrals: Blaine Alcala MD [Primary Care Provider] - 1-2 days Time of Disposition: 21:13
[2020-07-25 18:45] LABS: Basophils % (A) 0 %; Eosinophils # (A) 0.3 k/uL (0-0.7); Eosinophils % (A) 5 %; HCT 41.6 % (39.0-53.0); HGB 14.7 gm/dL (13.0-17.5); Lymphocytes # (A) 1.2 k/uL (1.0-4.8); Lymphocytes % (A) 21 %; MCH 30.4 pg (25.0-35.0); MCHC 35.4 g/dL (31.0-37.0); MCV 85.7 fL (80.0-100.0); Mean Platelet Volume 7.7; Monocytes # (A) 0.4 k/uL (0-1.0); Monocytes % (A) 6 %; Neutrophils # (A) 3.9 k/uL (1.3-7.7); Neutrophils % (A) 66 %; Platelet Count 278 k/uL (150-450); RBC 4.85 m/uL (4.30-5.90)
[2020-07-25 18:52] LABS: African American GFR (CKD) >90 (>60 ml/min/1.73 sqM); Anion Gap 9 mmol/L; Blood Urea Nitrogen 16 mg/dL (9-20); Calcium 9.3 mg/dL (8.4-10.2); Carbon Dioxide 21 mmol/L (22-30); Chloride 108 mmol/L (98-107); Glucose 152 mg/dL (74-99); Non-African American GFR(CKD) >90 (>60 ml/min/1.73 sqM); Potassium 4.1 mmol/L (3.5-5.1); Sodium 138 mmol/L (137-145)
--- NOTE | 2020-07-25 19:11 | CT ---
EXAMINATION: CT brain wo con DATE AND TIME: 07/25/2020 6:58 PM CLINICAL INDICATION: PHH; acute head ache TECHNIQUE: Standard departmental protocol9; 1151.4 mGy-cm COMPARISON: None. FINDINGS: The calvarium is intact. There is no intracranial hemorrhage. There is no intracranial mass or mass effect. No definite new intra-axial or extra-axial attenuation defect. The paranasal sinuses, middle ear cavities, and mastoid sinus air cells are clear. The orbits are unremarkable. IMPRESSION: NO ACUTE PROCESS.
[2020-07-25] MEDS ORDERED: RX INFO: IV CONTRAST WAS GIVEN 1 EACH MISC MISCELLANE PRN (19:14)
--- NOTE | 2020-07-25 21:05 | CT ---
EXAMINATION TYPE: CT chest w con DATE OF EXAM: 07/25/2020 COMPARISON: Chest radiograph 07/25/2020 HISTORY: Lung mass. CT DLP: 515.6 mGycm Automated exposure control for dose reduction was used. TECHNIQUE: CT scan of the chest is performed with IV Contrast, patient injected with 100 mL of Isovue 300. MIP Images are created on CT scanner and reviewed. 3D reconstructed images are created on an [employer] workstation and reviewed. FINDINGS: AIRWAYS: Unremarkable LUNGS: The radiographic finding corresponds to a ring of predominantly groundglass opacity with inter spersed consolidative opacity in the lateral and posterior periphery of the right upper lobe. The pat tern suggests atypical pneumonia. There are a few scattered tiny added opacities on the right, nonspe cific, but the lungs are otherwise clear and well expanded bilaterally. PLEURAL SPACES: Negative MEDIASTINUM/AUBREY: There is mild right suprahilar adenopathy, likely associated with the pneumonitis f indings in the right upper lobe. There are no other mediastinal or hilar findings. OTHER: No additional significant abnormality is seen. IMPRESSION: Prominent right upper lobe findings suspicious for atypical pneumonia.
[2020-07-25 22:02] VITALS: BP 141/85; PULSE 81; TEMP 98
== END 2020-07-25 21:50 | disposition home or self-care (01) ==
LOC: EC 17:25
DX: U07.1 COVID-19 (principal); E78.5 Hyperlipidemia, unspecified; Z87.891 Personal history of nicotine dependence; Z79.1 Long term (current) use of non-steroidal anti-inflammatories (NSAID)
CPT/HCPCS: 36415; 80048; 85025; 71045; 70450; 71260; 99285; 96374; J2765; Q9967

== ENCOUNTER → 2021-10-20 | Outpatient (CLI) | payer BC ==
--- NOTE | 2021-10-20 10:16 | CT ---
EXAMINATION TYPE: CT sinus wo con DATE OF EXAM: 10/20/2021 COMPARISON: CT brain July 25, 2020 HISTORY: Chronic sinusitis. Left-sided headaches and vision changes CT DLP: 648.0 mGycm. Automated Exposure Control for Dose Reduction was Utilized. TECHNIQUE: CT scan of the sinuses is performed without contrast, axial images are obtained, coronal r eformatted images are also reviewed. FINDINGS: The paranasal sinuses including the frontal, ethmoid, sphenoid, and maxillary sinuses bila terally are well-aerated without abnormal opacification or suspicious air-fluid levels. The ostiomea khanh complex is patent bilaterally on coronal image 20. Visualized portion of mastoid air cells show no abnormal opacification. The globes are intact bilate rally. IMPRESSION: The paranasal sinuses remain clear and the ostiomeatal complex is patent bilaterally.
== END | disposition home or self-care (01) ==
LOC: RADCTMAIN 09:15
PROVIDERS: ATTEND Otolaryngology
DX: J32.9 Chronic sinusitis, unspecified (principal)
CPT/HCPCS: 70486

== ENCOUNTER 2022-10-16 10:30 | Day surgery (SDC) | payer BC ==
[2022-10-16] MEDS: LACTATED RINGERS 1,000 ML IV SCH ×2 (11:03→11:34)
[2022-10-16 11:05] VITALS: TEMP 98.2
[2022-10-16] MEDS ORDERED: PROPOFOL 10 MG/ML 20 ML VIAL IV ONE (11:35)
--- NOTE | 2022-10-16 11:59 | P.PCN ---
Date of Procedure: 10/16/22 Procedure(s) Performed: BRIEF HISTORY: Patient is a 52-year-old pleasant white male scheduled for an elective colonoscopy as a part of screening for colon cancer. PROCEDURE PERFORMED: Colonoscopy with snare polypectomy and Endo Clip placement. PREOPERATIVE DIAGNOSIS: Screening for colon cancer. IV sedation per Anesthesia. PROCEDURE: After informed consent was obtained, the patient, was brought into the endoscopy unit. IV sedation was administered by Anesthesia under continuous monitoring. Digital rectal examination was normal. Initially the Olympus CF-160 flexible video colonoscope was then inserted in the rectum, gradually advanced into the cecum without any difficulty. Careful examination was performed as the scope was gradually being withdrawn. Ileocecal valve and the appendiceal orifice were visualized and appeared normal. Prep was excellent. Mucosa of the cecum, ascending colon, transverse colon, descending colon, appeared normal. In the sigmoid: There was a 5 mm polyp removed by snare polypectomy. In the proximal rectum at 12 cm from the anal verge there was a 3 cm broad-based polyp that was removed by piecemeal snare polypectomy and complete polypectomy accomplished. following the polypectomy 2 endoclips were placed to prevent post-polypectomy bleed. Following the Retroflexion was performed in the rectum and no lesions were seen. The patient tolerated the procedure well. IMPRESSION: 3 cm broad-based proximal rectal polyp status post snare polypectomy followed by Endo Clip placement and complete polypectomy accomplished 5 mm sigmoid: Polyp status post polypectomy RECOMMENDATIONS: Findings of this examination were discussed with the patient as well as his family. He was advised to follow with the biopsy results. If the biopsy reveals adenoma he can have a repeat colonoscopy in 3 years.
[2022-10-16 12:02] VITALS: BP 124/80; PULSE 84; RESP 16
== END 2022-10-16 12:45 | disposition home or self-care (01) ==
LOC: ORWHC2ENDO 10:30
PROVIDERS: ATTEND Internal Medicine Gastroenterology
DX: Z12.11 Encounter for screening for malignant neoplasm of colon (principal); D12.5 Benign neoplasm of sigmoid colon; D12.8 Benign neoplasm of rectum; E78.5 Hyperlipidemia, unspecified; Z79.82 Long term (current) use of aspirin; Z79.899 Other long term (current) drug therapy; Z87.891 Personal history of nicotine dependence
CPT/HCPCS: 45382; 45385; J2704; 88305